=== PATIENT | male | born 1970 | race Caucasian/White ===

== ENCOUNTER 2016-11-15 19:50 | Emergency (ER) | payer OTHER ==
[~2016-11-15] VITALS: Ht 172.7 cm; Wt 77.1 kg
[~2016-11-15 19:50] MED LIST: PERCOCET 5-3251 EACH PO; TYLENOL #31 TAB PO; ZOFRAN4 M2 PO
--- NOTE | 2016-11-15 20:57 | ED CARDIAC/CP/PALPITATIONS ---
History of Present Illness General Chief Complaint: Upper Respiratory Sx/Fever Stated Complaint: COUGH AND CONGESTION Source: patient, family, old records Exam Limitations: no limitations Vital Signs & Intake/Output Vital Signs & Intake/Output Vital Signs Date Time Temp Pulse Resp B/P Pulse O2 O2 Flow FiO2 Ox Delivery Rate 11/15 2339 98.0 66 20 112/72 96 Room Air 11/16 2155 98.6 83 18 128/78 99 Room Air 11/15 2056 98 Room Air 11/15 1954 98.2 80 18 122/82 97 Room Air ED Intake and Output 11/16 0000 11/15 1200 Intake Total Output Total Balance Patient 170 lb Weight Allergies Coded Allergies: NO KNOWN ALLERGIES (07/16/16) Reconcile Medications Clobetasol Propionate (OLUX) 0.05 % FOAM 1 FLOR TOP AD PRN PSORIASIS (Reported ) Ustekinumab (Stelara) 45 MG/0.5 ML SYRINGE 45 MG INJ AD PSORIASIS (Reported) Triage Note: PT TO TRIAGE WITH C/O CHEST PAIN 03/31 SINCE 0, PAIN WAS CONSTANT FOR 3 HR AND NOW INTERMITTENT. +MILD SOB. ALSO PT VOMITED WHEN PAIN STARTED. PT DENIES ABD PAIN AT THIS TIME, REPORTS MILD NAUSEA. VSS. PT TO [facility] FOR EKG. Triage Nurses Notes Reviewed? yes HPI: Patient is a 46-year-old male presents complaining of intermittent chest pain. Chest pain onset at approximately 2 PM today. Pain is a midsternal pushing sensation episodes occur approximately every 10 minutes last for approximately 2 minutes and resolved. When patient has the episodes he feels associated shortness of breath. Patient reports his last episode was approximately one to 2 minutes ago, symptoms are 0 out of 10 currently. One episode of vomiting sick sputum this afternoon. Patient has not taken any medication for symptoms. Patient started Stelara injections last month for psoriasis, last injection was 6 days ago. Patient smokes cigarettes daily. Patient denies family history of cardiac disease, lower extremity pain, lower extremity swelling, significant cough, fevers, chills. (MAGDALENO GRAVES,KOLE) Past History Travel History Traveled to [place] past 21 day No Medical History Any Pertinent Medical History? see below for history Neurological: NONE EENT: NONE Cardiovascular: NONE Respiratory: NONE Gastrointestinal: NONE Hepatic: NONE Renal: KIDNEY STONES Musculoskeletal: PSORIASIS Psychiatric: NONE Endocrine: NONE Blood Disorders: NONE Cancer(s): NONE ONCOLOGY SOCIAL WORK/Reproductive: NONE Surgical History Surgical History: none Psychosocial History What is your primary language Indonesian Tobacco Use: Current Daily Use Daily Tobacco Use Amount/Type: => 5 Cigarettes daily Illicit Drug Use: denies illicit drug use Family History Hx Contributory? No (KOLE REYNOSO) Review of Systems Review of Systems Constitutional: Denies: chills, fever. EENTM: Reports: no symptoms. Respiratory: Reports: short of breath. Cardiovascular: Reports: see HPI. GI: Reports: vomiting (one episode). Denies: abdominal pain, nausea. Genitourinary: Reports: no symptoms. Musculoskeletal: Denies: back pain, neck pain. Skin: Reports: no symptoms. Neurological/Psychological: Reports: no symptoms. Hematologic/Endocrine: Reports: no symptoms. Immunologic/Allergic: Reports: no symptoms. (KOLE REYNOSO) Physical Exam Physical Exam General Appearance: well developed/nourished, alert, awake Head: atraumatic, normal appearance Eyes: Bilateral: normal appearance, PERRL, EOMI. Ears, Nose, Throat: normal pharynx, normal ENT inspection, hearing grossly normal Neck: normal inspection, supple, full range of motion Respiratory: normal breath sounds, no respiratory distress, lungs clear, midsternal tenderness that reproduces symptoms. Cardiovascular: regular rate/rhythm, no appreciable murmur rub or gallop Peripheral Pulses: 2+ radial (L), 2+ dorsalis pedis (R), 2+ dorsalis pedis (L) Gastrointestinal: soft, non-tender Back: normal inspection, normal range of motion Extremities: normal inspection, normal capillary refill, normal range of motion, no edema, no calf tenderness Neurologic/Psych: no motor/sensory deficits, awake, alert, oriented x 3, normal gait, normal mood/affect Skin: intact, normal color, warm/dry Lymphatic: no anterior cervical herson Core Measures ACS in differential dx? Yes ASA ordered for poss ACS? Yes-ordered Severe Sepsis Present: No Septic Shock Present: No (KOLE REYNOSO) Progress Differential Diagnosis: AMI, aortic dissection, CHF/pulm edema, musculoskeletal pain, pericarditis, pneumonia, pneumothorax, PSVT, pulmonary embolism, unstable angina, V-fib/V-Tach Plan of Care: Orders Procedure Date/time Status TROPONIN LEVEL 11/16 2255 Complete EKG 11/16 2255 Active Telemetry/Visitor Services Representative 11/15 2057 Active TROPONIN LEVEL 11/15 2057 Complete COMPREHENSIVE METABOLIC PANEL 11/15 2057 Complete CBC WITHOUT DIFFERENTIAL 11/15 2057 Complete EKG 11/15 2000 Active Laboratory Tests 11/15/16 2310: Troponin I < 0.01 11/15/16 2140: Anion Gap 8, Estimated GFR > 60, BUN/Creatinine Ratio 10.0, Glucose 89, Calcium 9.5, Total Bilirubin 0.6, AST 19, ALT 44, Alkaline Phosphatase 97, Troponin I < 0.01, Total Protein 7.0, Albumin 4.0, Globulin 3.0, Albumin/Globulin Ratio 1.3 11/15/16 2100: CBC w Diff NO MAN DIFF REQ, RBC 5.48, MCV 86.5, MCH 29.0, RDW 13.2, MPV 8.5, Gran % 67.7, Lymphocytes % 22.1, Monocytes % 6.8, Eosinophils % 2.7, Basophils % 0.7, Absolute Granulocytes 9.5 H, Absolute Lymphocytes 3.1, Absolute Monocytes 1.0 H, Absolute Eosinophils 0.4, Absolute Basophils 0.1, PUBS MCHC 33.5 Low risk wells criteria, PERC negative. PE ruled out. Discussed with Dr. Martinez. 11/15/2016 10:57:46 PM: Patient reevaluated, results of labs, x-ray, EKG discussed with patient. Patient reports that when he turns on his side he feels increased pressure in his chest and the shortness of breath sensation. Starting to feel some nasal congestion and postnasal drip. Lungs clear, right anterior cervical lymphadenopathy, mild postnasal drip. Plan for repeat EKG and troponin if negative then patient to follow-up outpatient closely. (MAGDALENO GRAVES,KOLE) Diagnostic Imaging: Viewed by Me: Radiology Read. Discussed w/RAD: Radiology Read. Radiology Impression: PATIENT: DEBBIE GARCIA PRESENT AGE: 46 PATIENT ACCOUNT NO: [id number] : 69 LOCATION: [facility] ORDERING PHYSICIAN: KOLE GRAVES SERVICE DATE: 11/15/16-2057 EXAM TYPE: RAD - XRY-PORTABLE CHEST XRAY EXAMINATION: XR PORTABLE CHEST CLINICAL INFORMATION: Chest pain. COMPARISON: None TECHNIQUE: Portable AP view of the chest was obtained. FINDINGS: No airspace opacities or pleural effusions are seen. The cardiomediastinal silhouette is normal. No acute osseous abnormality is identified. IMPRESSION: Clear lungs. No acute process. DICTATED BY: GASTON FITZGERALD MD DATE/TIME DICTATED:11/15/162114 TYPE SOLDERING MACHINE TENDER:AYDE DATE/ TIME TRANSCRIBED:11/15/162114 CONFIDENTIAL, DO NOT COPY WITHOUT APPROPRIATE AUTHORIZATION. <Electronically signed in Other Vendor System> SIGNED BY: GASTON FITZGERALD MD 11/15/162118 Initial ED EKG: normal axis, normal intervals, normal p-waves, normal QRS complex, normal sinus rhythm, no ST T wave changes Repeat EKG: unchanged Rhythm Strip: normal sinus rhythm (KOLE REYNOSO) Departure Departure Time of Disposition: 2349 Disposition: HOME OR SELF CARE Condition: Stable Clinical Impression Primary Impression: Chest pain Qualifiers: Chest pain type: unspecified Qualified Code: R07.9 - Chest pain, unspecified Referrals: KOLE SHARIF MD (PCP/Family) ALICJA FERRO,LORENA Snowden Additional Instructions: Follow-up with your primary doctor this week for further evaluation. Call in the morning for appointment. Also follow up with Dr. Wood (patient access manager) for further evaluation. Call for appointment. Return to the emergency department if worsening of symptoms. Departure Forms: Customer Survey General Discharge Information (KOLE REYNOSO) PA/SALESPERSON [employer] Co-Sign Statement Statement: ED Attending supervision documentation- [] I saw and evaluated the patient. I have also reviewed all the pertinent lab results and diagnostic results. I agree with the findings and the plan of care as documented in the PA's/SALESPERSON [employer]'s documentation. [X] I have reviewed the ED Record and agree with the PA's/SALESPERSON [employer]'s documentation. [] Additions or exceptions (if any) to the PAs/SALESPERSON [employer]'s note and plan are summarized below: [] (STACEY FERRO,GASTON Mchugh) Critical Care Note Critical Care Note Critical Care Time: non-applicable (KOLE REYNOSO)
[2016-11-15 21:10] LABS: ABSOLUTE BASOPHIL COUNT 0.1 /CUMM (0.0-0.2); ABSOLUTE EOSINOPHIL COUNT 0.4 /CUMM (0.0-0.7); ABSOLUTE GRANULOCYTE CT 9.5 /CUMM (1.4-6.5); ABSOLUTE LYMPH COUNT 3.1 /CUMM (1.2-3.4); BASOPHIL % 0.7 % (0.0-2.0); EOSINOPHIL % 2.7 % (0-5); GRANULOCYTE % 67.7 % (42.2-75.2); HEMATOCRIT 47.4 % (42-52); MEAN CORPUSCULAR HGB CONC 33.5 G/DL (33.0-37.0); MEAN CORPUSCULAR VOLUME 86.5 FL (80.0-94.0); MEAN PLATELET VOLUME 8.5 FL (7.4-10.4); PLATELET COUNT 280 /CUMM (130-400); RBC DISTRIBUTION WIDTH 13.2 % (11.5-14.5); RED BLOOD CELL CT 5.48 /CUMM (4.70-6.10)
--- NOTE | 2016-11-15 21:19 | RADIOLOGY REPORT ---
EXAMINATION: XR PORTABLE CHEST CLINICAL INFORMATION: Chest pain. COMPARISON: None TECHNIQUE: Portable AP view of the chest was obtained. FINDINGS: No airspace opacities or pleural effusions are seen. The cardiomediastinal silhouette is normal. No acute osseous abnormality is identified. IMPRESSION: Clear lungs. No acute process.
[2016-11-15] MEDS ORDERED: OLUX100 GM TOP (21:57)
[2016-11-15] MEDS ORDERED: STELARA45 MG/0.1 INJ (21:58)
[2016-11-15 23:39] VITALS: BP 112/72
== END 2016-11-16 00:07 ==
LOC: ERH 19:50
PROVIDERS: Physician Assistant
DX: R07.9 Chest pain, unspecified (principal)
CPT/HCPCS: 93005; 93010; J3490

== ENCOUNTER 2017-01-25 21:23 | Emergency (ER) | payer OTHER ==
[~2017-01-25 21:23] MED LIST changes: +OLUX100 GM TOP; +STELARA45 MG/0.1 INJ
[2017-01-25 21:40] VITALS: BP 117/67
[2017-01-25] MEDS ORDERED: AMOXICILLIN875 M1 PO (21:54)
[2017-01-25] MEDS ORDERED: PERCOCET 5-3251 EACH PO (21:54)
--- NOTE | 2017-01-25 21:55 | ED THROAT/DENTAL COMPLAINT ---
History of Present Illness General Chief Complaint: Sore Throat, Dental Pain Stated Complaint: ?INFECTION IN MOUTH Source: patient Exam Limitations: no limitations Vital Signs & Intake/Output Vital Signs & Intake/Output Vital Signs Date Time Temp Pulse Resp B/P B/P Pulse O2 O2 Flow FiO2 Mean Ox Delivery Rate 01/25 2140 97.7 81 20 117/67 Allergies Coded Allergies: NO KNOWN ALLERGIES (07/16/16) Reconcile Medications Amoxicillin 875 MG TABLET 1 TAB PO BID dental infection Clobetasol Propionate (OLUX) 0.05 % FOAM 1 FLOR TOP AD PRN PSORIASIS (Reported ) Oxycodone HCl/Acetaminophen (Percocet 5-325 MG Tablet) 5 MG-325 MG TABLET 1-2 TAB PO Q6P PRN PAIN Ustekinumab (Stelara) 45 MG/0.5 ML SYRINGE 45 MG INJ AD PSORIASIS (Reported) Triage Note: PER PT HAD AN INFECTION IN L SIDE OF MOUTH PLACED ON ANTIBIOTICS TOOL LAST DOSE YESTERDAY. PER PT SCHEDULED FOR EXTRACTION TOMORROW, CANT TAKE PAIN NOW INTO L EAR. Triage Nurses Notes Reviewed? yes Onset: Abrupt Duration: week(s):, constant, continues in ED Timing: recent history Injury Environment: home No Modifying Factors: none HPI: 46-year-old male comes into emergency room with complaints of left upper dental pain has been going on for over a week. Patient went to a walk-in center and was prescribed amoxicillin. He has an appointment tomorrow with dentist. Hugh boyd. He reports that he was not planning on going because he is concerned about his infection. Pain radiates down into the jaw and neck area. Hugh. (MERCEDES CROUCH) Past History Travel History Traveled to [place] past 21 day No Medical History Any Pertinent Medical History? see below for history Neurological: NONE EENT: NONE Cardiovascular: NONE Respiratory: NONE Gastrointestinal: NONE Hepatic: NONE Renal: KIDNEY STONES Musculoskeletal: PSORIASIS Psychiatric: NONE Endocrine: NONE Blood Disorders: NONE Cancer(s): NONE UNIVERSITY INTERNSHIP/Reproductive: NONE Surgical History Surgical History: none Psychosocial History What is your primary language Scottish Tobacco Use: Current Daily Use Daily Tobacco Use Amount/Type: => 5 Cigarettes daily Family History Hx Contributory? No (MERCEDES CROUCH) Review of Systems Review of Systems Constitutional: Reports: no symptoms. EENTM: Reports: see HPI. Respiratory: Reports: no symptoms. Cardiovascular: Reports: no symptoms. GI: Reports: no symptoms. Genitourinary: Reports: no symptoms. Musculoskeletal: Reports: no symptoms. Skin: Reports: no symptoms. Neurological/Psychological: Reports: no symptoms. Hematologic/Endocrine: Reports: no symptoms. Immunologic/Allergic: Reports: no symptoms. All Other Systems: Reviewed and Negative (MERCEDES CROUCH) Physical Exam Physical Exam General Appearance: well developed/nourished, no apparent distress, alert Head: atraumatic, normal appearance Eyes: Bilateral: normal appearance. Nose: normal inspection Mouth/Throat: dental tenderness, chipped left upper molar Neck: normal inspection Cardiovascular/Respiratory: no respiratory distress Back: normal inspection Neurologic/Psych: awake, alert Skin: intact, normal color Core Measures ACS in differential dx? No Severe Sepsis Present: No Septic Shock Present: No (MERCEDES CROUCH) Progress Differential Diagnosis: aspirated tooth, carious tooth, epiglottitis, Ludwigs angina, meningitis, odontogenic abscess, aman-tonsillar abscess, pharyngeal for. body, stomatitis/gingivitis, strep pharyngitis, tooth fracture Plan of Care: 01/25/2017 10:02:03 PM Follow-up with dentist tomorrow. Patient was told that he should definitely keep his appointment tomorrow and that the dentist is the most important patient to see. Patient prescribed more amoxicillin although there is no acute signs of infection on exam. Patient prescribed pain medication. Patient needs tooth pulled. (MERCEDES CROUCH) Departure Departure Disposition: HOME OR SELF CARE Condition: Stable Clinical Impression Primary Impression: Pain, dental Secondary Impressions: Chipped tooth Referrals: CHANTE FERRO,KOLE Mchugh (PCP/Family) Additional Instructions: Take amoxicillin and Percocet as prescribed. Follow-up with dentist tomorrow as a rescheduled. Return if any other concerns worsening symptoms. Departure Forms: Customer Survey General Discharge Information Prescriptions: Current Visit Scripts Amoxicillin 1 TAB PO BID #14 TAB Oxycodone HCl/Acetaminophen (Percocet 5-325 MG Tablet) 1-2 TAB PO Q6P PRN PAIN #10 TAB (MERCEDES CROUCH) PA/[employer]PER[employer] Co-Sign Statement Statement: ED Attending supervision documentation- [] I saw and evaluated the patient. I have also reviewed all the pertinent lab results and diagnostic results. I agree with the findings and the plan of care as documented in the PA's/[employer]'s documentation. [X] I have reviewed the ED Record and agree with the PA's/[employer]'s documentation. [] Additions or exceptions (if any) to the PAs/[employer]PER[employer]'s note and plan are summarized below: [] (STACEY FERRO,GASTON Mchugh)
== END 2017-01-25 22:04 ==
LOC: ERH 21:23
DX: K08.89 Other specified disorders of teeth and supporting structures (principal); K03.81 Cracked tooth